=== PATIENT | female | born 1945 | race Two or more races ===

== ENCOUNTER 2024-02-24 08:33 | Emergency (ER) | payer OTHER ==
[~2024-02-24] VITALS: Ht 157.5 cm; Wt 74.4 kg
[2024-02-24] MEDS ORDERED: NEURONTIN800 MG PO (08:49)
[2024-02-24] MEDS ORDERED: AVAPRO150 MG PO (08:49)
[2024-02-24] MEDS ORDERED: PROMETHAZINE HCL 25 MG/ML AMPUL IM ONE (09:00)
[2024-02-24] MEDS ORDERED: MEPERIDINE HCL/PF 50 MG/ML VIAL IM ONE (09:00)
[2024-02-24 09:30] LABS: HEMATOCRIT 40.6 % (36.0-45.00); HEMOGLOBIN 13.6 g/dL (12.0-15.00); MEAN CELL VOLUME 84.4 fL (80.00-100.00); MEAN CORPUSCULAR HEMOGLOBIN 28.4 pg (27.00-32.0); MEAN CORPUSCULAR HGB CONC 33.6 g/dl (32.0-36.0); PLATELET COUNT 253 K/uL (150-450); RED BLOOD COUNT 4.81 M/uL (4.00-6.00); RED CELL DISTRIBUTION WIDTH 14.3 % (11.5-14.5)
[2024-02-24 14:24] LABS: PH,URINE 7.5 (5.0-8.0); URINE APPEARANCE Clear; URINE BILIRRUBIN Negative (NEGATIVE); URINE BLOOD Negative; URINE COLOR Yellow; URINE GLUCOSE Negative (NEGATIVE); URINE KETONE Negative (NEGATIVE); URINE LEUKOCYTE Negative; URINE NITRATE Negative; URINE PROTEIN Negative (NEGATIVE); URINE UROBILINOGEN 0.2 E.U./dl
[2024-02-24 14:28] LABS: URINE BACTERIA 57.5 uL (0.0-1933); URINE EPITHELIAL CELLS 7.2 uL (0.0-38.8); URINE RBC 36.2 uL (0.0-20.8); URINE WBC 5.5 uL (0.0-23.2)
[2024-02-24 14:35] LABS: URINE CAST 0.14 uL (0.0-1.40)
== END 2024-02-24 13:31 | disposition home or self-care (01) ==
LOC: ER 08:33
PROVIDERS: Emergency Medicine
DX: M54.50 Low back pain, unspecified (principal); I10 Essential (primary) hypertension
CPT/HCPCS: 36415; 72131; 96372; 99284; J3490 ×2

== ENCOUNTER 2024-02-24 13:41 | Outpatient (CLI) | payer OTHER ==
[~2024-02-24 13:41] MED LIST: AVAPRO150 MG PO; NEURONTIN800 MG PO
== END 2024-02-24 13:55 | disposition home or self-care (01) ==
LOC: MRI 13:41
PROVIDERS: ATTEND Radiology Diagnostic Radiology
DX: M54.50 Low back pain, unspecified (principal)
CPT/HCPCS: 72148